=== PATIENT | male | born 1945 ===

== ENCOUNTER 2016-06-26 13:23 | Inpatient (IN) | payer OTHER ==
[~2016-06-26] VITALS: Ht 157.5 cm; Wt 70.5 kg
--- NOTE | 2016-06-26 14:01 | ED CARDIAC/CP/PALPITATIONS ---
History of Present Illness General Chief Complaint: General Adult Stated Complaint: SENT FROM DR. FERNANDEZ Vital Signs & Intake/Output Vital Signs & Intake/Output Vital Signs Date Time Temp Pulse Resp B/P Pulse O2 O2 Flow FiO2 Ox Delivery Rate 06/26 1648 97.9 39 20 169/72 96 Room Air 06/26 1530 98.1 38 18 170/74 100 06/26 1415 96 Room Air Room Air 06/26 1331 96.9 40 16 152/78 99 Room Air Allergies Coded Allergies: No Known Drug Allergies (UNKNOWN 08/12/15) Reconcile Medications Fluticasone/Vilanterol (Breo Ellipta 100-25 Mcg INH) 100 MCG-25 MCG/DOSE BLST.W.DEV 1 PUFF PO DAILY BREATHING PROBLEMS (Reported) Latanoprost 0.005 % DROPS 1 GTT OPH QPM EYE (Reported) Lisinopril 20 MG TABLET 1 TAB PO DAILY heart (Reported) Triage Note: 71 Y/O MALE BROUGHT BY FROM DR FERNANDEZ'S OFFICE FOR EVAL OF LOW HEART RATE. DR DOE SPOKE WITH DR FERNANDEZ ON THE PHONE WHO STATED PT WAS SENT TO ED FOR EVAL OF PULSE [address] (IN DR FERNANDEZ'S OFFICE). PT IN TRIAGE WITH RATE 40-42. DENIES HX OF SAME. STATES HE FEELS "LETHARGIC". DENIES DIZZINESS. DENIES PAIN. TAKEN TO ROOM 1 FOR EVAL AND EKG. Triage Nurses Notes Reviewed? yes Onset: Abrupt Duration: constant Timing: single episode today Quality/Severity: moderate Radiation: no radiation Activities at Onset: none HPI: Patient is a 71-year-old male with a past medical history of COPD, hypertension and glaucoma who presents to emergency room stating that he was being evaluated outpatient by pulmonology Dr. Fernandez today in which she was in his normal state of health where Dr. Fernandez noted bradycardia in which she was strongly advised to present to emergency room. Patient states that he has been complaining of mild generalized lethargy however denies any symptoms of fever, chills, arm pain jaw pain nausea vomiting dizziness lightheadedness sensation syncope hemoptysis leg swelling. Patient still is a current smoker. Denies any changes of respiration symptoms from his chronic intermittent nonproductive cough He does admit to a remote history of intermittent chest pain however nothing recent. (ELENI RODRIGUEZ,ZENOBIA) General Source: patient Exam Limitations: no limitations (ALPA DOE DO) Past History Travel History Traveled to [place] past 21 day No Medical History Any Pertinent Medical History? see below for history Neurological: NONE EENT: NONE Cardiovascular: NONE, hypertension Respiratory: COPD Gastrointestinal: NONE Hepatic: NONE Renal: NONE Musculoskeletal: NONE Psychiatric: NONE Endocrine: NONE Blood Disorders: NONE Cancer(s): NONE MANAGER [place]/Reproductive: NONE Pneumonia Vaccine: 04/16/07 Tetanus Vaccine: Surgical History Surgical History: non-contributory Psychosocial History Who do you live with Patient/Self What is your primary language Czech Tobacco Use: Current Daily Use Daily Tobacco Use Amount/Type: => 5 Cigarettes daily Family History Hx Contributory? No (ZENOBIA PLASCENCIA) Review of Systems Review of Systems Constitutional: Reports: no symptoms. EENTM: Reports: no symptoms. Respiratory: Reports: no symptoms. Cardiovascular: Reports: no symptoms. GI: Reports: no symptoms. Genitourinary: Reports: no symptoms. Musculoskeletal: Reports: no symptoms. Skin: Reports: no symptoms. Neurological/Psychological: Reports: no symptoms. Hematologic/Endocrine: Reports: no symptoms. Immunologic/Allergic: Reports: no symptoms. All Other Systems: Reviewed and Negative (ZENOBIA PLASCENCIA) Physical Exam Physical Exam General Appearance: no apparent distress, alert Cardiovascular: bradycardia Comments: Well-developed well-nourished person in no acute distress HEENT: Normal EENT exam, . Neck: Supple, no lymphadenopathy, normal range of motion without pain or tenderness Back: Nontender, no CVA tenderness. Respiratory: Chest nontender. No respiratory distress.breath sounds clear to auscultation bilaterally Abdomen: Soft, nontender nondistended, no appreciable organomegaly. Normal bowel sounds. No ascites Extremity: No edema, no calf tenderness to palpation, normal and equal pulses. Neuro: Alert oriented x3, motor sensory normal, Skin: No appreciable rash on exposed skin, skin is warm and dry. Psych: Mood and affect is normal, memory and judgment is normal. Core Measures ACS in differential dx? Yes Severe Sepsis Present: No Septic Shock Present: No (ZENOBIA PLASCENCIA) Progress Differential Diagnosis: AMI, aortic dissection, atrial fibrillation, cholecystitis, CHF/pulm edema, costochondritis, hyperkalemia, hypovolemia, hyperthyroid, hyperventilation, intracranial hemorrhage, musculoskeletal pain, myocarditis, pancreatitis, pericarditis, pneumonia, pneumothorax, PSVT, pulmonary embolism, PUD/GERD, PVCs/PACs, respiratory failure, rib fracture, sepsis, unstable angina, V-fib/V-Tach, WPW syndrome Plan of Care: Orders Procedure Date/time Status Nothing by Mouth 06/27 B Active CBC WITHOUT DIFFERENTIAL 06/27 0500 Active TROPONIN LEVEL 06/27 0130 Active EKG 06/27 0130 Active Heart Healthy Diet 06/26 D Complete TROPONIN LEVEL 06/26 1930 Active EKG 06/26 1930 Active Weight 06/26 1720 Active Turn and Reposition 06/26 1720 Active Teach/Educate 06/26 1720 Active Skin Integrity Protocol 06/26 1720 Active Skin/Pressure Ulcer Assess (Sk 06/26 1720 Active Precautions 06/26 1720 Active Pain Treatment and Response 06/26 1720 Active Nutritional Intake, Monitor 06/26 1720 Active Isolation 06/26 1720 Active Patient Care Conference 06/26 1720 Active Activity/Ambulation 06/26 1720 Active LOWER RESPIRATORY CULTURE 06/26 1651 Active Add-on Test (ER Only) 06/26 1622 Active Add-on Test (ER Only) 06/26 1621 Active EKG 06/26 1619 Active TRC EVALUATION (GEN) 06/26 1600 Active PT Evaluate & Treat 06/26 1600 Active Pathway - chart 06/26 1600 Active House Staff 06/26 1600 Active Code Status 06/26 1600 Active Add-on Test (ER Only) 06/26 1441 Active Admit to inpatient 06/26 1440 Active Patient Data 06/26 1431 Active THYROID STIMULATING HORMONE 06/26 1420 Complete PHOSPHORUS 06/26 1420 Complete MAGNESIUM 06/26 1420 Complete FREE T4 06/26 1420 Complete TROPONIN LEVEL 06/26 1348 Complete PROTHROMBIN TIME 06/26 1348 Complete LYME TITRE 06/26 1348 Active COMPREHENSIVE METABOLIC PANEL 06/26 1348 Complete CBC WITHOUT DIFFERENTIAL 06/26 1348 Complete EKG 06/26 1334 Active VTE Mechanical Prophylaxis 06/26 UNK Active Vital Signs 06/26 UNK Active Intake & Output 06/26 UNK Active ECHOCARDIOGRAM 06/26 UNK Active Current Medications Sig/Natasha Start time Last Medication Dose Stop Time Status Admin Budesonide/ 2 PUF BID 06/26 2200 AC Formoterol Fumarate (SYMBICORT) Atropine Sulfate 1 MG ONE PRN 06/26 1630 AC (Atropine) Acetaminophen 500 MG Q6P PRN 06/26 1600 AC (Tylenol) Ibuprofen 200 MG Q6P PRN 06/26 1600 AC (Advil) Oxycodone/ 1 TAB Q6P PRN 06/26 1600 AC Acetaminophen (Percocet) Heparin Sodium 5,000 UNIT Q8 06/26 1552 AC (Porcine) Laboratory Tests 06/26/16 1420: Anion Gap 13, Estimated GFR 60, BUN/Creatinine Ratio 18.3, Glucose 114 H, Calcium 10.1, Phosphorus 4.3, Magnesium 1.8, Total Bilirubin 1.0, AST 30, ALT 49 , Alkaline Phosphatase 114, Troponin I < 0.01, Total Protein 8.0, Albumin 4.3, Globulin 3.7, Albumin/Globulin Ratio 1.2, TSH 2.400, Free T4 1.34, PT 10.9, INR 1.04, CBC w Diff NO MAN DIFF REQ, RBC 4.90, MCV 84.4, MCH 28.2, RDW 14.6 H, MPV 7.9, Gran % 67.7, Lymphocytes % 23.2, Monocytes % 7.2, Eosinophils % 0.9, Basophils % 1.0, Absolute Granulocytes 9.7 H, Absolute Lymphocytes 3.3, Absolute Monocytes 1.0 H, Absolute Eosinophils 0.1, Absolute Basophils 0.1, PUBS MCHC 33.5 06/26/16 1348: Lyme Disease Antibody Pending Microbiology 06/26 1650 LOWER RESP: Respiratory Culture - ORD 06/26 1650 LOWER RESP: Gram Stain - ORD Patient's EKG showed signs of bradycardia however on vehicle monitor technician rhythm strip there is concerns of complete heart block. Patient currently is asymptomatic and denies any dizziness lightheadedness sensation or syncope. This patient with Dr. DOE who discussed the admission with Dr. Anderson who accepted patient to the ICU for concerns of complete heart block. Disposition and plan was discussed with patient who agrees at this time. Currently patient is in no apparent stress (ELENI RODRIGUEZ,ZENOBIA) Diagnostic Imaging: Viewed by Me: Radiology Read. Radiology Impression: SEE COMMENTS Initial ED EKG: SINUS BRADYCARDIA 38 BPM FIRST-DEGREE av BLOCK lvh,[id number] Comments: PATIENT: WILLIAM DRAPER PRESENT AGE: 71 PATIENT ACCOUNT NO: [id number] : 45 LOCATION: [facility] ORDERING PHYSICIAN: ZENOBIA RODRIGUEZ SERVICE DATE: 06/26/167788 EXAM TYPE: RAD - XRY-PORTABLE CHEST XRAY EXAMINATION: XR PORTABLE CHEST CLINICAL INFORMATION: ICU admission. Complete heart block. COMPARISON: Chest CT dated 04/18/2016. TECHNIQUE: Portable AP view of the chest was obtained. FINDINGS: The heart is normal in size. There is uncoiling of the thoracic aorta. There are bibasilar airspace opacities. There is no pneumothorax or large pleural effusion. Patient's known pulmonary nodules are better delineated on previous CT examination. IMPRESSION: Bibasilar opacities. Aspiration cannot be excluded.. (ZENOBIA PLASCENCIA) Departure Departure Disposition: STILL A PATIENT Condition: Critical Clinical Impression Primary Impression: Complete heart block Referrals: MEHRDAD GORDON MD (PCP/Family) Departure Forms: Customer Survey General Discharge Information Admission Note Documentation of Exam: Documentation of any treatments & extenuating circumstances including Concerns Regarding Discharge (functional status, medication knowledge or non-compliance, living conditions, etc.) that warrant an admission rather than observation: (ZENOBIA PLASCENCIA) Admission Note Spoke With: JUANY ANDERSON MD Documentation of Exam: Documentation of any treatments & extenuating circumstances including Concerns Regarding Discharge (functional status, medication knowledge or non-compliance, living conditions, etc.) that warrant an admission rather than observation: [The patient's rhythm strip shows complete heart block. He is admission for telemetry monitoring, cardiology consultation, follow the Lyme titer, likely pacemaker insertion.] PA/DERRICK BUILDER Co-Sign Statement Statement: ED Attending supervision documentation- [X] I saw and evaluated the patient. I have also reviewed all the pertinent lab results and diagnostic results. I agree with the findings and the plan of care as documented in the PA's/DERRICK BUILDER's documentation. [] I have reviewed the ED Record and agree with the PA's/DERRICK BUILDER's documentation. [] Additions or exceptions (if any) to the PAs/DERRICK BUILDER's note and plan are summarized below: [] 06/26/16 2:30 P I've seen and personally examined the patient and I agree with the PAs evaluation. He is a 71-year-old male with history of lung carcinoma. He was being evaluated by Dr. Fernandez and found to have a heart rate in the 30s. He was referred to the emergency department;P his initial 12-lead EKG showed sinus bradycardia however rhythm strip was done and it shows complete heart block. The patient is being admitted to the ICU under Dr. Anderson's service (ALPA DOE DO) Critical Care Note Critical Care Note Critical Care Time: 30-74 min (ELENI RODRIGUEZ,ZENOBIA)
[2016-06-26 14:32] LABS: ABSOLUTE BASOPHIL COUNT 0.1 /CUMM (0.0-0.2); ABSOLUTE EOSINOPHIL COUNT 0.1 /CUMM (0.0-0.7); ABSOLUTE GRANULOCYTE CT 9.7 /CUMM (1.4-6.5); ABSOLUTE LYMPH COUNT 3.3 /CUMM (1.2-3.4); EOSINOPHIL % 0.9 % (0-5); GRANULOCYTE % 67.7 % (42.2-75.2); HEMATOCRIT 41.3 % (42-52); MEAN CORPUSCULAR HGB 28.2 PG (27.0-31.0); MEAN CORPUSCULAR HGB CONC 33.5 G/DL (33.0-37.0); MEAN CORPUSCULAR VOLUME 84.4 FL (80.0-94.0); MEAN PLATELET VOLUME 7.9 FL (7.4-10.4); PLATELET COUNT 283 /CUMM (130-400); RBC DISTRIBUTION WIDTH 14.6 % (11.5-14.5); WHITE BLOOD CELL COUNT 14.3 /CUMM (4.8-10.8)
[2016-06-26 14:39] LABS: PT 10.9 SEC (9.4-12.5)
--- NOTE | 2016-06-26 14:41 | History & Physical ---
YOUSUF TREVIZO,KHARI 06/26/16 1440: General Information and HPI MD Statement: I have seen and personally examined WILLIAM DRAPER and documented this H&P. The patient is a 71 year old M who was sent to the ED from Dr. Panda's office today due to low heart rate. Source of Information: patient, family Exam Limitations: no limitations History of Present Illness: 71-year-old man with past medical history of hypertension, hyperlipidemia, COPD not on home oxygen, right lung nodule, peripheral vascular disease, osteoporosis , anxiety, was refered to the emergency department by Dr Frank Panda after finding his heart rate was 39-40/min in his office. In the Emergency department, his vitals was found to be HR- 40/min, BP- 152/ 78mmHg, temp- 96.9, rr- 16, Sp)2- 99% on room air. Patient says that he was completely asymptomatic, but on questioning he admitted to having increased lethargy since past 2 days. He denies any fever, chest pain, worsening cough, worsening shortness of breath, palpitation, dizziness, falls, swelling of legs, nausea, vomiting, recent travel, tick or any insect bites, any sick contacts. He also denied taking any [id number] medications/recreational medication. He did mention that he takes marijuana every day and the last one was yesterday. His primary care physician is Dr. Dawson Rios. He has seen Dr. 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 He mentioned that he does not wishes to be a regular patient of Dawson Jennings MD. Of note, while we were questioning the patient, his heart rate has been 39/min and he has remained asymptomatic. Allergies/Medications Allergies: Coded Allergies: No Known Drug Allergies (UNKNOWN 08/12/15) Home Med list Fluticasone/Vilanterol (Breo Ellipta 100-25 Mcg INH) 100 MCG-25 MCG/DOSE BLST.W.DEV 1 PUFF PO DAILY BREATHING PROBLEMS (Reported) Latanoprost 0.005 % DROPS 1 GTT OPH QPM EYE (Reported) Lisinopril 20 MG TABLET 1 TAB PO DAILY heart (Reported) Past History Travel History Traveled to [place] past 21 day No Medical History Neurological: NONE EENT: NONE Cardiovascular: hypertension, hyperlipidemia, PVD Respiratory: COPD, pulmonary nodule right side Gastrointestinal: NONE Hepatic: NONE Renal: NONE Musculoskeletal: osteoporosis Psychiatric: anxiety Endocrine: NONE Blood Disorders: NONE Cancer(s): NONE DISPERSION MIXER/Reproductive: NONE Pneumonia Vaccine: 04/16/07 Tetanus Vaccine: Past Family/Social History Psychosocial History Where do you live? Home Primary Language: Albanian Smoking Status: Heavy Tobacco Smoker (50+pack years history) ETOH Use: occasional use Illicit Drug Use: marijuana (daily, last was 06/25/16) Living Will? no Power of Arc Air Operator/HCP? yes Name of POA/HCP: Ara Anne [phone] Review of Systems Review of Systems Constitutional: Reports: no symptoms, malaise (2 DAYS). Denies: chills, diaphoresis, fever, weakness, unexplained weight loss. EENTM: Reports: no symptoms. Cardiovascular: Reports: no symptoms. Respiratory: Reports: cough (occassional). GI: Reports: no symptoms. Genitourinary: Reports: no symptoms. Musculoskeletal: Reports: no symptoms. Skin: Reports: no symptoms. Neurological/Psychological: Reports: no symptoms. Hematologic/Endocrine: Reports: no symptoms. All Other Systems: Reviewed and Negative Exam & Diagnostic Data Last 24 Hrs of Vital Signs/I&O Vital Signs Date Time Temp Pulse Resp B/P Pulse O2 O2 Flow FiO2 Ox Delivery Rate 06/26 1415 96 Room Air Room Air 06/26 1331 96.9 40 16 152/78 99 Room Air Intake & Output 06/26 1600 06/26 0800 06/26 0000 Intake Total 0 Output Total Balance 0 Intake, Oral 0 Patient 72.575 kg Weight Physical Exam General Appearance Alert, Oriented X3, Cooperative, No Acute Distress Skin No Rashes, No Breakdown, No Significant Lesion HEENT Atraumatic, PERRLA, EOMI, Mucous Membr. moist/pink Neck Supple, No JVD Lymphatic Cervical nl Cardiovascular Normal S1, Normal S2, bradycardia at 38 Lungs Clear to Auscultation, Normal Air Movement Abdomen Normal Bowel Sounds, Soft, No Tenderness Neurological Normal Speech, Strength at 5/5 X4 Ext, Normal Tone, Sensation Intact, Cranial Nerves 3-12 NL, Reflexes 2+, higher mental function normal, grossly intact Extremities No Clubbing, No Cyanosis, No Edema, Normal Pulses Vascular Normal Pulses, Pulses Symmetrical Last 24 Hrs of Labs/Darek: Laboratory Tests 06/26/16 1420: Anion Gap 13, Estimated GFR 60, BUN/Creatinine Ratio 18.3, Glucose 114 H, Calcium 10.1, Total Bilirubin 1.0, AST 30, ALT 49, Alkaline Phosphatase 114, Troponin I < 0.01, Total Protein 8.0, Albumin 4.3, Globulin 3.7, Albumin/ Globulin Ratio 1.2, TSH Pending, Free T4 Pending, PT 10.9, INR 1.04, CBC w Diff NO MAN DIFF REQ, RBC 4.90, MCV 84.4, MCH 28.2, RDW 14.6 H, MPV 7.9, Gran % 67.7 , Lymphocytes % 23.2, Monocytes % 7.2, Eosinophils % 0.9, Basophils % 1.0, Absolute Granulocytes 9.7 H, Absolute Lymphocytes 3.3, Absolute Monocytes 1.0 H, Absolute Eosinophils 0.1, Absolute Basophils 0.1, PUBS MCHC 33.5 06/26/16 1348: Lyme Disease Antibody Pending Diagnostic Data EKG Results AV dissociation with ventricular rate at 35/min, narrow complex, P wave at 100/ min, No ST-T wave changes, QTC- 474, QRS duration- 126, PA- 383, RBBB CXR Results IMPRESSION: Bibasilar opacities. Aspiration cannot be excluded.. DICTATED BY: DORIS CAMPOS MD DATE/TIME DICTATED:06/26/161517 SOCIAL ECONOMIST:NASIMA DATE/TIME TRANSCRIBED:06/26/161517 Other Results ECHO done on 08/09/2015 shows LVEF>65% Assessment/Plan Assessment: 71-year-old man with past medical history of hypertension, hyperlipidemia, COPD not on home oxygen, right lung nodule, peripheral vascular disease, osteoporosis , anxiety, was refered to the emergency department by Dr Frank Panda after finding his heart rate was 39-40/min in his office. In the emergency room, he was found to have vitals as pulse 40, blood pressure 152/78, temperature 96.9, respirations 16, oxygen saturation 99% on room air. Lab was significant for mild leukocytosis and chest x-ray could not rule out aspiration due to bibasilar opacities. Patient is currently being managed in the ICU for the following issues: #Third-degree heart block Only cardiac history that the patient has is hypertension, hyperlipidemia, peripheral vascular disease, and no other similar episodes where the patient was ever told about low pulse rate or low heart rate, so we're assuming that this is his first episode. -Patient is currently asymptomatic, except for fatigue since 2 days which is nonspecific -Director [employer] Dr. Lopez has reviewed the patient and EKG, telemetry recordings, and plan is to go for pacemaker implantation tonight. -In the meantime, the patient has pacemaker pads stuck on over his chest, and injection atropine ready at the bedside. Injection atropine 0.5 mg IV can be given stat if he is symptomatic with bradycardia, with a maximum dose of 3 mg. -Dr Mack has been contacted for the procedure and the patient put on NPO. -Vancomycin one time dose pre-procedure ordered. -Will follow one more EKG and troponin after the procedure and then decide on the rest. #His home medication is on hold due to the procedure. -Will need to continue his medication for COPD, hypertension, hyperlipidemia, anxiety after the procedure. -Of note, medication has been confirmed with the patient, as well as his pharmacy, the medical reconciliation is up-to-date. #Of note, he has pulmonary nodule on the left side, and according to his salesperson automobiles Dr. Panda, he knows about it and does not want to proceed with its work-up at this time. #Diet: Nothing by mouth for now, pending procedure. Need to advance diet as patient tolerates after procedure. #DVT prophylaxis by subcutaneous heparin 3 times a day #CODE STATUS: Full code As Ranked By This Provider Problem List: 1. Complete heart block 2. COPD (chronic obstructive pulmonary disease) 3. Pulmonary nodule, right 4. PVD (peripheral vascular disease) 5. HTN (hypertension) 6. HLD (hyperlipidemia) 7. Osteoporosis 8. Anxiety Core Measures/Miscellaneous Acute Coronary Syndrome ACS Diagnosis: No Cerebrovascular Accident CVA/TIA Diagnosis: No Congestive Heart Failure CHF Diagnosis: No Venous Thromboembolism VTE Risk Factors: Age > 40, Obesity, Smoking [facility] prophylaxis d/t: No contraindications No VTE Pharm Prophylaxis d/t: No contraindications VTE Diagnosis: No VTE Type: NONE VTE Confirmed by (Test): NONE Severe Sepsis Severe Sepsis Present: No Septic Shock Septic Shock Present: No Miscellaneous Documentation Attending Case Discussed With: JUANY LOPEZ MD Primary Care Physician: DAWSON RIOS MD Patient sees these Specialists Cardiology Level of Patient Care: Critical Care (CRI) JUANY LOPEZ MD 06/26/16 1656: Attending MD Review Statement Attending Statement Attending MD Statement: examined this patient, discuss w/resident/PA/PROCESS SAFETY SPECIALIST, agreed w/resident/PA/PROCESS SAFETY SPECIALIST, discussed with family, reviewed EMR data (avail), discussed with nursing, reviewed images, amended to note Attending Assessment/Plan: Agree with housestaff note. The patient is a 71-year-old male with history of hypertension, hyperlipidemia, and right lung nodule who was admitted with third- degree heart block. He presented to Dr. Aquino's office for follow-up of his lung nodule. He complained of fatigue and feeling poorly. He has not eaten anything all day because of feeling poorly. He was found to be bradycardic with heart rate in the 30s. He was referred to the emergency department where he was found to be in third-degree AV block. He denies palpitations, chest pain, shortness of breath, syncope, or presyncope. Review of systems: No fever. No chills. No rash. No tremor. No melena. All other systems were reviewed, and were noted to be negative. Vital Signs Date Time Temp Pulse Resp B/P Pulse O2 O2 Flow FiO2 Ox Delivery Rate 06/26 1648 97.9 39 20 169/72 96 Room Air 06/26 1530 98.1 38 18 170/74 100 06/26 1415 96 Room Air Room Air 06/26 1331 96.9 40 16 152/78 99 Room Air Gen: The patient is in no acute distress HEENT: Normal nose, ears, and oropharynx. Pupils equal bilaterally. Conjunctiva normal. Neck: Supple with no JVD, no masses, and no thyromegaly Lungs: Clear to auscultation with normal respiratory effort Heart: Bradycardic, S1, S2, no murmurs. No peripheral edema, 2+ pulses in the lower extremities bilaterally Abdomen: Soft, nontender, no masses. No hepatomegaly. No splenomegaly Extremities: No clubbing or cyanosis. Normal muscle strength in the upper and lower extremities Skin: Normal skin turgor with no skin ulcers or lesions noted. Neuro: Cranial nerves intact. Sensation intact Psych: Alert and oriented 3 with appropriate affect Laboratory Tests 06/26 06/26 1420 1348 Chemistry Sodium (137 - 145 mmol/L) 137 Potassium (3.5 - 5.1 mmol/L) 4.5 Chloride (98 - 107 mmol/L) 103 Carbon Dioxide (22 - 30 mmol/L) 21 L Anion Gap (5 - 16) 13 BUN (9 - 20 mg/dL) 22 H Creatinine (0.7 - 1.2 mg/dL) 1.2 Estimated GFR (>60 ml/min) 60 BUN/Creatinine Ratio (7 - 25 %) 18.3 Glucose (65 - 99 mg/dL) 114 H Calcium (8.4 - 10.2 mg/dL) 10.1 Phosphorus (2.5 - 4.5 mg/dL) 4.3 Magnesium (1.6 - 2.3 mg/dL) 1.8 Total Bilirubin (0.2 - 1.3 mg/dL) 1.0 AST (17 - 59 U/L) 30 ALT (21 - 72 U/L) 49 Alkaline Phosphatase (< 127 U/L) 114 Troponin I (<0.11 ng/ml) < 0.01 Total Protein (6.3 - 8.2 g/dL) 8.0 Albumin (3.5 - 5.0 g/dL) 4.3 Globulin (1.9 - 4.2 gm/dL) 3.7 Albumin/Globulin Ratio (1.1 - 2.2 %) 1.2 TSH (0.270 - 4.200 uIU/mL) 2.400 Free T4 (0.78 - 2.44 ng/dL) 1.34 Coagulation PT (9.4 - 12.5 SEC) 10.9 INR (0.90 - 1.17) 1.04 Hematology CBC w Diff NO MAN DIFF REQ WBC (4.8 - 10.8 /CUMM) 14.3 H RBC (4.70 - 6.10 /CUMM) 4.90 Hgb (14.0 - 18.0 G/DL) 13.8 L Hct (42 - 52 %) 41.3 L MCV (80.0 - 94.0 FL) 84.4 MCH (27.0 - 31.0 PG) 28.2 RDW (11.5 - 14.5 %) 14.6 H Plt Count (130 - 400 /CUMM) 283 MPV (7.4 - 10.4 FL) 7.9 Gran % (42.2 - 75.2 %) 67.7 Lymphocytes % (20.5 - 51.1 %) 23.2 Monocytes % (1.7 - 9.3 %) 7.2 Eosinophils % (0 - 5 %) 0.9 Basophils % (0.0 - 2.0 %) 1.0 Absolute Granulocytes (1.4 - 6.5 /CUMM) 9.7 H Absolute Lymphocytes (1.2 - 3.4 /CUMM) 3.3 Absolute Monocytes (0.10 - 0.60 /CUMM) 1.0 H Absolute Eosinophils (0.0 - 0.7 /CUMM) 0.1 Absolute Basophils (0.0 - 0.2 /CUMM) 0.1 PUBS MCHC (33.0 - 37.0 G/DL) 33.5 Serology Lyme Disease Antibody Pending Echocardiogram 08/09/15: Mild concentric left ventricular hypertrophy. Normal left ventricular ejection fraction visually estimated at >65 No obvious regional wall motion abnormalities. Abnormal relaxation filling pattern of the left ventricle for age (stage 1 diastolic dysfunction). The left atrium is normal in size. Mitral valve thickened. Moderate to marked mitral annular calcification. No mitral regurgitation. Focal thickening of the aortic valve cusps. No aortic stenosis. Pulmonary artery systolic pressure is normal. Persantine Mibi stress test 08/13/15: Normal Persantine stress and resting myocardial perfusion study with normal left ventricular wall motion and ejection fraction. Screening CT of the chest: - For the irregular 1.3 cm left upper lobe nodule, recommend PET-CT imaging workup and/or tissue sampling. - Recommend cessation of cigarette smoking. - Management of other potentially clinically significant findings as per accepted clinical guidelines, or as deemed clinically appropriate. PET CT of the chest: 1. Intense abnormal FDG activity in the left upper lobe pulmonary nodule is strongly suspicious for malignancy. 2. Multiple additional subcentimeter pulmonary nodules present bilaterally are too small to be characterized on the FDG PET images. 3. No additional abnormalities suspicious for metastatic or other malignant lesions are noted. 4. Diffuse vascular calcifications including coronary. In addition, proximal to an aortobiiliac vascular graft, there has been a slight increase in the size of the abdominal aorta compared to 02/02/2009. EKG tracing is independently reviewed, reveals sinus rhythm with third-degree AV block Assessment: 1. Hypertension 2. Hyperlipidemia 3. Peripheral acid disease 4. COPD 5. Lung mass, likely malignant. The patient has declined biopsy and surgery. Plan: * Admit to ICU for third-degree heart block * Transcutaneous pacing pads at the bedside. * Nothing by mouth * Consult Dr. Mack for pacemaker placement. * Echocardiogram. 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 Patient reports feeling weak and tired for the past couple days. Patient denies any recent listing to the emergency department or recent hospitalization. Patient denies any fever, chest pain, palpitation, difficulty breathing, wheezing, abdominal pain, diarrhea, vomiting, headache or change in vision or hearing. Latest echocardiogram was done July 2015 with ejection fraction more than 60%, stage I diastolic dysfunction. Physical examination, lab and imaging as above. Problem list: -Symptomatic bradycardia with third-degree A-V heart block. -Lung mass/nodules most likely malignant, patient declined biopsy and surgery. Plan: -Admit patient to ICU -Vitals every shift, I and O's -Atropine at bedside with transcutaneous pacing pads -Keep the patient nothing by mouth for emergent pacemaker placement that would be placed by Dr. Frederick mcdonald. -Check serial troponin and EKG -Check magnesium, phosphate and TSH with free T4 level -Check Lyme titer -Echocardiogram status post placement -TRC nebs as needed continue home medication of inhaler. -We'll hold off any beta zenon or calcium channel zenon medication -We'll start the diet after procedure with heart healthy diet -Pain pathway -DVT prophylaxis: subcutaneous heparin -Full code
[2016-06-26] MEDS ORDERED: LISINOPRIL20 M1 PO (14:54)
[2016-06-26] MEDS ORDERED: LATANOPROST2.5 ML OPH (14:54)
[2016-06-26] MEDS ORDERED: BREO ELLIPTA 11 EACH PO (14:54)
--- NOTE | 2016-06-26 15:26 | RADIOLOGY REPORT ---
EXAMINATION: XR PORTABLE CHEST CLINICAL INFORMATION: ICU admission. Complete heart block. COMPARISON: Chest CT dated 04/18/2016. TECHNIQUE: Portable AP view of the chest was obtained. FINDINGS: The heart is normal in size. There is uncoiling of the thoracic aorta. There are bibasilar airspace opacities. There is no pneumothorax or large pleural effusion. Patient's known pulmonary nodules are better delineated on previous CT examination. IMPRESSION: Bibasilar opacities. Aspiration cannot be excluded..
[2016-06-26 17:48] VITALS: BP 150/80
--- NOTE | 2016-06-26 22:16 | Cons- Cardiology ---
General Information and HPI Consulting Request Date of Consult: 06/26/16 Requested By: JUANY ANDERSON MD Reason for Consult: I was asked to see this patient in regards to complete heart block. Source of Information: patient, family, old records Exam Limitations: no limitations, poor historian History of Present Illness: This patient is a 71-year-old man who has a history of hypertension hyperlipidemia heavy tobacco use and daily marijuana use. He has known peripheral vascular disease. He has had an aortobifemoral graft placed by either Dr. Sorensen or Shoaib. Unfortunately his continued to smoke heavily. He also may have borderline diabetes. Other issues include nephrolithiasis, osteoporosis, and severe COPD. He is followed by Dr. Panda. He does have a known lung nodule on CT scan which lights up on PET scan and is likely malignant. On a CT scan he did have coronary artery calcifications suggestive of coronary artery disease. He did have a stress MIBI study on 08/13/2015 showing no ischemia and a normal ejection fraction. He also had an echocardiogram on 08/09/2015 showing a normal ejection fraction of 65% but he did have aortic valve thickening and heavy mitral annular calcification. Over the past couple days he may have had increasing weakness although apparently is able to go up and down stairs. He came to see Dr. Panda for routine appointment today and his pulse was noted to be in the 30s to 40s. He was sent to the ER where an EKG showed complete heart block with a ventricular escape. I was asked by Dr. Anderson to see the patient and recommended an emergent pacemaker. Allergies/Medications Allergies: Coded Allergies: No Known Drug Allergies (UNKNOWN 08/12/15) Home Med List: Fluticasone/Vilanterol (Breo Ellipta 100-25 Mcg INH) 100 MCG-25 MCG/DOSE BLST.W.DEV 1 PUFF PO DAILY BREATHING PROBLEMS (Reported) Latanoprost 0.005 % DROPS 1 GTT OPH QPM EYE (Reported) Lisinopril 20 MG TABLET 1 TAB PO DAILY heart (Reported) Current Medications: Current Medications Sig/Natasha Start time Last Medication Dose Route Stop Time Status Admin Acetaminophen 500 MG Q6P PRN 06/26 1600 AC PO Albuterol Sulfate 3 ML Q4P PRN 06/26 2215 UNV INH Atropine Sulfate 1 MG ONE PRN 06/26 1630 AC IV Budesonide/ 2 PUF BID 06/26 2200 AC Formoterol Fumarate INH Heparin Sodium 5,000 UNIT Q8 06/26 1552 AC (Porcine) SC Ibuprofen 200 MG Q6P PRN 06/26 1600 AC PO Oxycodone/ 1 TAB Q6P PRN 06/26 1600 AC Acetaminophen PO Sodium Chloride 1,000 ML BOLUS ONE 06/26 1400 DC 06/26 IV 06/26 1559 1412 Vancomycin HCl 1,000 MG ONCE ONE 06/27 1000 UNir Dextrose/Water 250 ML IV 06/27 1059 Vancomycin HCl 1,000 MG ONCE ONE 06/26 1830 DC Dextrose/Water 250 ML IV 06/26 1929 Review of Systems Review of Systems All Other Systems: Reviewed and Negative Past History Travel History Traveled to [place] past 21 day No Medical History Neurological: NONE EENT: NONE Cardiovascular: hypertension, hyperlipidemia, PVD Respiratory: COPD, pulmonary nodule right side Gastrointestinal: NONE Hepatic: NONE Renal: NONE Musculoskeletal: osteoporosis Psychiatric: anxiety Endocrine: NONE Blood Disorders: NONE Cancer(s): NONE 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 Home Primary Language: Northern Irish Smoking Status: Heavy Tobacco Smoker (50+pack years history) ETOH Use: occasional use Illicit Drug Use: marijuana (daily, last was 06/25/16) Living Will? no Power of Field Marketer/HCP? yes Name of POA/HCP: Ara Anne, Exam & Diagnostic Data Vital Signs and I&O Vital Signs Date Time Temp Pulse Resp B/P Pulse O2 O2 Flow FiO2 Ox Delivery Rate 06/26 2155 Nasal 2.0L Cannula 06/26 1748 97.6 37 28 150/80 96 Room Air 06/26 1648 97.9 39 20 169/72 96 Room Air 06/26 1530 98.1 38 18 170/74 100 06/26 1415 96 Room Air Room Air 06/26 1331 96.9 40 16 152/78 99 Room Air Intake & Output 06/26 1600 06/26 0800 06/26 0000 06/25 1600 06/25 0806/25 0000 Intake Total 0 Output Total Balance 0 Intake, Oral 0 Patient 160 lb Weight Physical Exam: General: [] For vital signs, see above. Head: Normocephalic/atraumatic Eyes: No xanthelasma or scleral icterus Mouth: Moist mucous membranes without pallor or cyanosis Neck: No jugular venous distention, carotid bruits, thyromegaly Thorax/lungs: No chest deformity, lungs diffuse rhonchi with prolonged expiratory phase Cardiac: Normal S1, S2 without S3, S4 or murmurs. HR in the high 30's Abdomen: No tenderness or masses Extremities: No cyanosis, clubbing, or edema Neruo: Grossly nonfocal Skin: No major rashes Psychiatric: Somewhat anxious, agitated, and somewhat uncooperative Labs/Darek Results: Laboratory Tests 06/26 06/26 06/26 1830 1420 1348 Chemistry Sodium (137 - 145 mmol/L) 137 Potassium (3.5 - 5.1 mmol/L) 4.5 Chloride (98 - 107 mmol/L) 103 Carbon Dioxide (22 - 30 mmol/L) 21 L Anion Gap (5 - 16) 13 BUN (9 - 20 mg/dL) 22 H Creatinine (0.7 - 1.2 mg/dL) 1.2 Estimated GFR (>60 ml/min) 60 BUN/Creatinine Ratio (7 - 25 %) 18.3 Glucose (65 - 99 mg/dL) 114 H Hemoglobin A1c (4.2 - 5.8 %) Pending Calcium (8.4 - 10.2 mg/dL) 10.1 Phosphorus (2.5 - 4.5 mg/dL) 4.3 Magnesium (1.6 - 2.3 mg/dL) 1.8 Total Bilirubin (0.2 - 1.3 mg/dL) 1.0 AST (17 - 59 U/L) 30 ALT (21 - 72 U/L) 49 Alkaline Phosphatase (< 127 U/L) 114 Troponin I (<0.11 ng/ml) < 0.01 < 0.01 Total Protein (6.3 - 8.2 g/dL) 8.0 Albumin (3.5 - 5.0 g/dL) 4.3 Globulin (1.9 - 4.2 gm/dL) 3.7 Albumin/Globulin Ratio (1.1 - 2.2 %) 1.2 TSH (0.270 - 4.200 uIU/mL) 2.400 Free T4 (0.78 - 2.44 ng/dL) 1.34 Coagulation PT (9.4 - 12.5 SEC) 10.9 INR (0.90 - 1.17) 1.04 Hematology CBC w Diff NO MAN DIFF REQ WBC (4.8 - 10.8 /CUMM) 14.3 H RBC (4.70 - 6.10 /CUMM) 4.90 Hgb (14.0 - 18.0 G/DL) 13.8 L Hct (42 - 52 %) 41.3 L MCV (80.0 - 94.0 FL) 84.4 MCH (27.0 - 31.0 PG) 28.2 RDW (11.5 - 14.5 %) 14.6 H Plt Count (130 - 400 /CUMM) 283 MPV (7.4 - 10.4 FL) 7.9 Gran % (42.2 - 75.2 %) 67.7 Lymphocytes % (20.5 - 51.1 %) 23.2 Monocytes % (1.7 - 9.3 %) 7.2 Eosinophils % (0 - 5 %) 0.9 Basophils % (0.0 - 2.0 %) 1.0 Absolute Granulocytes (1.4 - 6.5 /CUMM) 9.7 H Absolute Lymphocytes (1.2 - 3.4 /CUMM) 3.3 Absolute Monocytes (0.10 - 0.60 /CUMM) 1.0 H Absolute Eosinophils (0.0 - 0.7 /CUMM) 0.1 Absolute Basophils (0.0 - 0.2 /CUMM) 0.1 PUBS MCHC (33.0 - 37.0 G/DL) 33.5 Serology Lyme Disease Antibody Pending Diagnostic Data EKG Results Complete heart block with ventricular escape Assessment/Plan Assessment/Plan My assessment is that this patient has complete heart block. The likely etiology is distal conduction system disease especially given his heavy mitral annular calcification seen on echocardiography. I agree that dual-chamber pacemaker implantation is recommended and will be admitting him emergently to the operating room for this procedure. He does have coronary artery calcification and he should be on a statin for this as well. We will leave his pulmonary issues to Dr. Panda. The patient likely has a lung carcinoma. He'll also need continued treatment for his hypertension. He was counseled to stop smoking but did not seem interested in this proposition. Copies To: ADRIANA TREVIZO,MO Beard; NGOZI PANDA MD; HEIDI TREVIZO,MEHRDAD Beard; JUSTIN TREVIZO,JUANY Consult Acknowledgment - Thank you for your consult request.
--- NOTE | 2016-06-26 22:34 | Operative Report ---
Operative/Inv Procedure Report Surgery Date: 06/26/16 Name of Procedure: Dual-chamber pacemaker implantation Pre-Operative Diagnosis: Complete heart block Post-Operative Diagnosis: Complete heart block Estimated Blood Loss: scant Surgeon/Centrifuge Operator: Mo Mack MD Anesthesia: local monitored anesthesi, moderate sedation Implants: Dual-chamber Medtronic pacemaker see below Complications: None apparent Operative Indication: Complete heart block Operative/Procedure Note Note: The patient was brought to the OR prepped and draped in usual fashion. It should be noted this is a very difficult case in that the patient was moving throughout the entire case rather vigorously. The patient also has COPD it was very difficult to sedate him without some obstuction and yet he was also very agitated. This made the case higher risk. After he was prepped and draped the skin was anesthetized and incision made and dissection carried out down the deltoid and pectoral muscles. The deltopectoral groove was identified and dissected in a very small cephalic vein was isolated. A Vicryl tie was placed around the vein. The vein was cannulated with a Jelco but no blood return was achievable. Thus it appeared that this vein was too small to access the central circulation. Thus the patient was placed in Trendelenburg and the left axillary vein was cannulated using a micropuncture kit using fluoroscopic guidance. A micropuncture wire was exchanged for a conventional guidewire and a 7 Slovak introducer was advanced. Through this the ventricular lead was placed. The ventricular lead is Medtronic active fixation bipolar lead model 5076-52 serial number [id number]. This was actively fixed to the right ventricular septum. Once excellent values were obtained with injury current we remove this SafeSheath and sewed the lead to the underlying muscle using 2 separate 2-0 silk sutures. We had placed a second guidewire into the original sheath and thus a wire was retained after we readvanced the first sheath. Thus over the second retained wire we advanced another 7 Slovak SafeSheath and through this we placed atrial lead. The atrial lead is Medtronic model 4574-45 serial number [id number]. This is a preformed J tined atrial lead. Once we obtained excellent values with this lead we then removed the SafeSheath and sewed this lead to the underlying muscle using 2 separate 2-0 silk sutures. We then placed a hemostatic Vicryl suture around both leads to stop any backbleeding. After further local was delivered we created a pocket overlying the pectoral muscle using Bovie and then blunt dissection. Final testing of the leads revealed a P- wave amplitude of 4.1 mV. The R wave amplitude is roughly 10 mV. Measured through the device the P-wave amplitude was 4.1 mV. The atrial lead impedance was 608 ohms. The ventricular impedance was 646 ohms. Both atrial and ventricular thresholds were 0.5 V. The pacemaker was then brought to the field and attached to the leads. The pacemaker is a Medtronic Advisa MRI compatible unit, Model A2DR01, serial number [id number]. This was attached to the leads in the appropriate fashion. The pocket was then irrigated using antibiotic solution after the device was placed into the pocket. The pocket was then closed using running 2-0 Vicryl in 3 layers and then 4-0 Monocryl suture in a subcuticular fashion. Steri-Strips were placed and a dressing was applied. The pacemaker was set into the DDD mode lower rate of 60 and an upper tracking rate of 140 bpm. The paced AV delay was set at 200 and the sensed AV delay 180. There were no apparent complications and the patient was sent back to the ICU in good condition. CC: ADRIANA TREVIZO,MO Beard; JIM TREVIZO,NGOZI; HEIDI TREVIZO,MEHRDAD Beard; JUANY ANDERSON MD
--- NOTE | 2016-06-26 22:46 | RADIOLOGY REPORT ---
EXAMINATION: XRY-CHEST XRAY, ONE VIEW ONLY, XRY-PORTABLE CHEST XRAY CLINICAL INFORMATION: Pacemaker placement. COMPARISON: Chest x-ray done earlier this afternoon. TECHNIQUE: Fluoroscopic guidance was provided to Dr. Demetrio Mack for pacemaker placement. The total time fluoroscopy was 3.3 minutes. A total of 7 spot films are submitted for review. This was followed with a portable semierect chest x-ray. FINDINGS: The spot films document the steps taken in the placement of a dual-lead pacemaker. One wire terminates in the right atrium and the other the right ventricle. Spot film #4 and #5 show wire fragments presumably external to the patient. Following the surgery, there is no indication of pneumothorax. Subsegmental left lower lobe atelectasis is present. There is no evidence of congestive heart failure or pleural effusion. IMPRESSION: Status post pacemaker placement with 2 leads as described. No pneumothorax.
[2016-06-27] VITALS: BP 110/70
[2016-06-27 05:19] LABS: ABSOLUTE BASOPHIL COUNT 0.1 /CUMM (0.0-0.2); ABSOLUTE EOSINOPHIL COUNT 0 /CUMM (0.0-0.7); ABSOLUTE GRANULOCYTE CT 11.1 /CUMM (1.4-6.5); ABSOLUTE LYMPH COUNT 3.2 /CUMM (1.2-3.4); ABSOLUTE MONOCYTE COUNT 1.3 /CUMM (0.10-0.60); BASOPHIL % 0.4 % (0.0-2.0); EOSINOPHIL % 0.2 % (0-5); GRANULOCYTE % 70.6 % (42.2-75.2); MEAN CORPUSCULAR HGB 28.2 PG (27.0-31.0); MEAN CORPUSCULAR HGB CONC 33.1 G/DL (33.0-37.0); MEAN CORPUSCULAR VOLUME 85.2 FL (80.0-94.0); MEAN PLATELET VOLUME 8.2 FL (7.4-10.4); PLATELET COUNT 234 /CUMM (130-400); RBC DISTRIBUTION WIDTH 14.4 % (11.5-14.5); RED BLOOD CELL CT 4.25 /CUMM (4.70-6.10); WHITE BLOOD CELL COUNT 15.8 /CUMM (4.8-10.8)
[2016-06-27 05:30] LABS: HEMATOCRIT 36.2 % (42-52)
--- NOTE | 2016-06-27 06:21 | Cons- CR[facility] ---
General Information and HPI Consulting Request Date of Consult: 06/27/16 Requested By: Dr. Lopez Reason for Consult: COPD lung mass Source of Information: patient Exam Limitations: no limitations History of Present Illness: 71-year-old man known to me from office. Sent 06/26 to ED after noted to have a heart rate in office HR 39-40. Fatigued. Only on Lisinopril (hasn't taken in past few days). Continues to smoke marijuana. Understands that his lung lesion maybe malignant and he prefers no intervention. From the pulmonary perspective he appears stable on BREO, however he is losing his appetite. In ER noted to be in complete heart block and is now s/p pacemaker placement. Feels much better. Some soreness/tenderness at insertion site. Otherwise no dyspnea, no cp, no n/v/d/c. Previous history: S/p PET scan - Intense abnormal FDG activity in the left upper lobe pulmonary nodule is strongly suspicious for malignancy. - Multiple additional subcentimeter pulmonary nodules present bilaterally are too small to be characterized on the FDG PET images. - No additional abnormalities suspicious for metastatic or other malignant lesions are noted. - Diffuse vascular calcifications including coronary. In addition, proximal to an aortobiiliac vascular graft, there has been a slight increase in the size of the abdominal aorta compared to 02/02/2009. MICHAEL NEW irregular 1.3 cm left upper lobe nodule. 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 Significant response to bronchodilators. FEV1 1.25L. Stress test nuclear showed normal Persantine stress testing with resting myocardial perfusion study with normal LV wall motion and ejection fraction. Echo in July 2015 showing stage I diastolic dysfunction. Smokes about 1 ppd at this time and marijuana at least 3 joints daily. Cough and dyspnea at baseline, no wheezing. No fevers, no chills. Allergies/Medications Allergies: Coded Allergies: No Known Drug Allergies (UNKNOWN 08/12/15) Home Med List: Fluticasone/Vilanterol (Breo Ellipta 100-25 Mcg INH) 100 MCG-25 MCG/DOSE BLST.W.DEV 1 PUFF PO DAILY BREATHING PROBLEMS (Reported) Latanoprost 0.005 % DROPS 1 GTT OPH QPM EYE (Reported) Lisinopril 20 MG TABLET 1 TAB PO DAILY heart (Reported) Current Medications: Current Medications Sig/Natasha Start time Last Medication Dose Route Stop Time Status Admin Acetaminophen 1,000 MG .STK-MED ONE 06/26 1850 DC IV 06/26 1851 Acetaminophen 500 MG Q6P PRN 06/26 1600 AC PO Albuterol Sulfate 3 ML Q4P PRN 06/26 2215 AC INH Atorvastatin Calcium 80 MG 1700 06/27 1700 AC PO Atropine Sulfate 1 MG ONE PRN 06/26 1630 AC IV Benzocaine/Menthol 1 ZULEYKA Q2P PRN 06/26 2230 AC 06/26 PO 2321 Budesonide/ 2 PUF BID 06/26 2200 DC 06/26 Formoterol Fumarate INH 2225 Dexamethasone 4 MG .STK-MED ONE 06/26 1851 DC IM 06/26 1852 Fentanyl Citrate 100 MCG .STK-MED ONE 06/26 1851 DC IM 06/26 1852 Heparin Sodium 5,000 UNIT Q8 06/26 1552 AC 06/27 (Porcine) SC 0609 Ibuprofen 200 MG Q6P PRN 06/26 1600 AC PO Ketamine HCl 50 MG .STK-MED ONE 06/26 2008 DC IM 06/26 2010 Lisinopril 20 MG DAILY 06/27 1000 AC PO Midazolam HCl 2 MG .STK-MED ONE 06/26 1851 DC IM 06/26 1852 Ondansetron HCl 8 MG .STK-MED ONE 06/26 1851 DC IM 06/26 1852 Oxycodone/ 1 TAB Q6P PRN 06/26 1600 AC Acetaminophen PO Ramelteon 8 MG AT BEDTIME 06/26 2345 AC 06/26 PO 2339 Sodium Chloride 1,000 ML BOLUS ONE 06/26 1400 DC 06/26 IV 06/26 1559 1412 Vancomycin HCl 1,000 MG ONCE ONE 06/27 1000 AC Dextrose/Water 250 ML IV 06/27 1059 Vancomycin HCl 1,000 MG ONCE ONE 06/26 1830 DC 06/26 Dextrose/Water 250 ML IV 06/26 1929 1830 Review of Systems Comments 18 pt ros performed, pertinent positives and negatives in hpi, otherwise negative Past History Travel History Traveled to [place] past 21 day No Medical History Neurological: NONE EENT: NONE Cardiovascular: hypertension, hyperlipidemia, PVD Respiratory: COPD, pulmonary nodule right side Gastrointestinal: NONE Hepatic: NONE Renal: NONE Musculoskeletal: osteoporosis Psychiatric: anxiety Endocrine: NONE Blood Disorders: NONE Cancer(s): NONE 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 Home Services at Home: None Primary Language: Dominican Smoking Status: Heavy Tobacco Smoker (50+pack years history) ETOH Use: occasional use Illicit Drug Use: marijuana (daily, last was 06/25/16) Living Will? 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 Name of POA/HCP: Ara Omid, Exam & Diagnostic Data Last 24 Hrs of Vital Signs/I&O Vital Signs Date Time Temp Pulse Resp B/P Pulse O2 O2 Flow FiO2 Ox Delivery Rate 06/27 0400 96 Nasal 2.0L Cannula 06/27 0000 97 Nasal 2.0L Cannula 06/27 0000 96.5 94 28 110/70 97 Nasal 2.0L Cannula 06/26 2155 Nasal 2.0L Cannula 06/26 1748 97.6 37 28 150/80 96 Room Air 06/26 1648 97.9 39 20 169/72 96 Room Air 06/26 1530 98.1 38 18 170/74 100 06/26 1415 96 Room Air Room Air 06/26 1331 96.9 40 16 152/78 99 Room Air Intake & Output 06/27 0800 06/27 0000 06/26 1600 Intake Total 550 0 Output Total 200 Balance 350 0 Intake, IV 300 Intake, Oral 250 0 Output, Urine 200 Patient 160 lb 160 lb Weight Physical Exam Other Physical Findings: gen awake and alert heent ncat cvs s1, s2, murmur abd soft, bs+ ext without edema pacemaker intact Last 48 Hrs of Labs/Darek: Laboratory Tests 06/27/16 0349: CBC w Diff NO MAN DIFF REQ, RBC 4.25 L, MCV 85.2, MCH 28.2, RDW 14.4, MPV 8.2, Gran % 70.6, Lymphocytes % 20.2 L, Monocytes % 8.6, Eosinophils % 0.2, Basophils % 0.4, Absolute Granulocytes 11.1 H, Absolute Lymphocytes 3.2, Absolute Monocytes 1.3 H, Absolute Eosinophils 0, Absolute Basophils 0.1, PUBS MCHC 33.1 06/26/16 1830: Troponin I < 0.01 06/26/16 1420: Anion Gap 13, Estimated GFR 60, BUN/Creatinine Ratio 18.3, Glucose 114 H, Hemoglobin A1c Pending, Calcium 10.1, Phosphorus 4.3, Magnesium 1.8, Total Bilirubin 1.0, AST 30, ALT 49, Alkaline Phosphatase 114, Troponin I < 0.01, Total Protein 8.0, Albumin 4.3, Globulin 3.7, Albumin/Globulin Ratio 1.2, TSH 2.400, Free T4 1.34, PT 10.9, INR 1.04, CBC w Diff NO MAN DIFF REQ, RBC 4.90, MCV 84.4, MCH 28.2, RDW 14.6 H, MPV 7.9, Gran % 67.7, Lymphocytes % 23.2, Monocytes % 7.2, Eosinophils % 0.9, Basophils % 1.0, Absolute Granulocytes 9.7 H, Absolute Lymphocytes 3.3, Absolute Monocytes 1.0 H, Absolute Eosinophils 0.1 , Absolute Basophils 0.1, PUBS MCHC 33.5 06/26/16 1348: Lyme Disease Antibody Pending Assessment/Plan Impression/Plan: 71-year-old man known to me from office. Sent 06/26 to ED after noted to have a heart rate in office HR 39-40. Fatigued. Only on Lisinopril (hasn't taken in past few days). Continues to smoke marijuana. Understands that his lung lesion maybe malignant and he prefers no intervention. From the pulmonary perspective he appears stable on BREO, however he is losing his appetite. In ER noted to be in complete heart block and is now s/p pacemaker placement. Feels much better. Some soreness/tenderness at insertion site. Otherwise no dyspnea, no cp, no n/v/d/c. Previous history: S/p PET scan - Intense abnormal FDG activity in the left upper lobe pulmonary nodule is strongly suspicious for malignancy. - Multiple additional subcentimeter pulmonary nodules present bilaterally are too small to be characterized on the FDG PET images. - No additional abnormalities suspicious for metastatic or other malignant lesions are noted. - Diffuse vascular calcifications including coronary. In addition, proximal to an aortobiiliac vascular graft, there has been a slight increase in the size of the abdominal aorta compared to 02/02/2009. MICHAEL NEW irregular 1.3 cm left upper lobe nodule. 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 Significant response to bronchodilators. FEV1 1.25L. Stress test nuclear showed normal Persantine stress testing with resting myocardial perfusion study with normal LV wall motion and ejection fraction. Echo in July 2015 showing stage I diastolic dysfunction. Smokes about 1 ppd at this time and marijuana at least 3 joints daily. Cough and dyspnea at baseline, no wheezing. No fevers, no chills. Impression 71 year old man - complete heart block, s/p pacemaker - COPD - tobacco/marijuana dependence - lung mass Plan - pt declines any intervention/diagnosis for lung mass which is likely malignant , all risks discussed on multiple occasions - cardiac care per cardiology - d/s symbicort - patient is on BREO with rinsing of the mouth, can bring from home, or resume when discharged - TRC/Nebs as needed - pain control - smoking cessation, counseled - DVT prophylaxis at all times TTS 40 min Consult Acknowledgment - Thank you for your consult request.
[2016-06-27 08:00] VITALS: BP 110/60
--- NOTE | 2016-06-27 08:17 | PN- Resident CRCU ---
Subjective HPI/CRCU Issues: Pt status post pacemaker implantation for 3rd degree heart block, has done well overnight. Was comfortably eating breakfast on the recliner this am when seen. Reports that he has not had much appetite and smoking weed helps him with his appeptite. He reports sore throat most likely from the intubation. He did not sleep on the bed, and has not been sleeping on the bed due to chronic orthopnea, although lungs sounded clear, and no LE edema noted. As discussed with Dr. Lopez, pt can be transferred to telemetry. 24 Hour Events: No events Objective Vital Signs & I&O Last 8 Hrs of Vitals and I&O: Vital Signs Date Time Temp Pulse Resp B/P Pulse O2 O2 Flow FiO2 Ox Delivery Rate 06/27 0837 92 Room Air 06/27 0400 96 Nasal 2.0L Cannula 06/27 0000 97 Nasal 2.0L Cannula 06/27 0000 96.5 94 28 110/70 97 Nasal 2.0L Cannula 06/26 2155 Nasal 2.0L Cannula 06/26 1748 97.6 37 28 150/80 96 Room Air 06/26 1648 97.9 39 20 169/72 96 Room Air 06/26 1530 98.1 38 18 170/74 100 06/26 1415 96 Room Air Room Air 06/26 1331 96.9 40 16 152/78 99 Room Air Exam General Appearance: well developed/nourished, no apparent distress, alert, awake , comfortable Head: normal appearance Ears, Nose, Throat: hearing grossly normal Neck: normal inspection Respiratory: normal breath sounds Cardiovascular: regular rate/rhythm Gastrointestinal: normal bowel sounds, soft, non-tender Extremities: no edema Current Medications: Current Medications Sig/Natasha Start time Last Medication Dose Route Stop Time Status Admin Acetaminophen 1,000 MG .STK-MED ONE 06/26 1850 DC IV 06/26 1851 Acetaminophen 500 MG Q6P PRN 06/26 1600 AC PO Albuterol Sulfate 3 ML Q4P PRN 06/26 2215 AC INH Atorvastatin Calcium 80 MG 1700 06/27 1700 AC PO Atropine Sulfate 1 MG ONE PRN 06/26 1630 AC IV Benzocaine/Menthol 1 ZULEYKA Q2P PRN 06/26 2230 AC 06/27 PO 0749 Budesonide/ 2 PUF BID 06/26 2200 DC 06/26 Formoterol Fumarate INH 2225 Dexamethasone 4 MG .STK-MED ONE 06/26 185 DC IM 06/26 185 Fentanyl Citrate 100 MCG .STK-MED ONE 06/26 185 DC IM 06/26 185 Heparin Sodium 5,000 UNIT Q8 06/26 1552 AC 06/27 (Porcine) SC 0609 Ibuprofen 200 MG Q6P PRN 06/26 1600 AC PO Ketamine HCl 50 MG .STK-MED ONE 06/26 2008 DC IM 06/26 2009 Lisinopril 20 MG DAILY 06/27 1000 AC PO Midazolam HCl 2 MG .STK-MED ONE 06/26 185 DC IM 06/26 185 Ondansetron HCl 8 MG .STK-MED ONE 06/26 185 DC IM 06/26 185 Oxycodone/ 1 TAB Q6P PRN 06/26 1600 AC 06/27 Acetaminophen PO 0749 Ramelteon 8 MG AT BEDTIME 06/26 2345 AC 06/26 PO 2339 Sodium Chloride 1,000 ML BOLUS ONE 06/26 1400 DC 06/26 IV 06/26 1559 1412 Vancomycin HCl 1,000 MG ONCE ONE 06/27 1000 AC Dextrose/Water 250 ML IV 06/27 1059 Vancomycin HCl 1,000 MG ONCE ONE 06/26 1830 DC 06/26 Dextrose/Water 250 ML IV 06/26 1929 1830 Impression/Plan Impression/Problem List Impression: This is a 71-year-old man with PMH of hypertension, hyperlipidemia, COPD not on home oxygen, right lung nodule, peripheral vascular disease, osteoporosis, anxiety, was refered to the ED by his visual display associate, Dr. Panda, due to bradycardia with a heart rate between 35-45/MIN. Patient reports feeling weak and tired for the couple days prior. He was admitted under Dr. Lopez. He underwent pacemaker implantation with Dr. Mack on 06/26/16 and tolerated it well. Was observed in ICU overnight, and now stable for transfer to telemetry. Latest echocardiogram was done July 2015 with ejection fraction more than 60%, stage I diastolic dysfunction. Problem list: -Symptomatic bradycardia with third-degree AV heart block sp pacemaker implantation -Lung mass/nodules most likely malignant, patient declined biopsy and surgery -Leukocytosis (WBC 14.3 on admission, now 15.8, without bands) Plan: -Transfer to telemetry -Monitor CBC -Vitals every shift, I and O's -F/U Lyme titer -F/U Echocardiogram status post placement -TR nebs as needed, continue home medication of inhaler - Continue lisinopril for blood pressure control - Continue atorvastatin DVT prophylaxis: subcutaneous heparin and alps Full code Problem List: 1. Complete heart block 2. Pacemaker 3. Pulmonary nodule, right Pain Ratin Tomorrow's Labs & Rationales: CBC for leukocytosis Plan DVT/Prophylaxis: mechanical, pharmacological
--- NOTE | 2016-06-27 09:24 | PN- Cardiology ---
See Addendum Subjective Subjective: Permanent pacemaker placed urgently yesterday evening for third-degree heart block. The patient is feeling better today. No chest pain. No shortness of breath. No lightheadedness or dizziness. No nausea or vomiting. Pulmonary consulted for lung mass which appears to be likely malignant. The patient is refusing further workup for possible lung cancer. He is in a paced rhythm on telemetry. Fatigue has improved. Objective Vital Signs and I&Os Vital Signs Date Time Temp Pulse Resp B/P Pulse O2 O2 Flow FiO2 Ox Delivery Rate 06/27 0837 92 Room Air 06/27 0400 96 Nasal 2.0L Cannula 06/27 0000 97 Nasal 2.0L Cannula 06/27 0000 96.5 94 28 110/70 97 Nasal 2.0L Cannula 06/26 2155 Nasal 2.0L Cannula 06/26 1748 97.6 37 28 150/80 96 Room Air 06/26 1648 97.9 39 20 169/72 96 Room Air 06/26 1530 98.1 38 18 170/74 100 06/26 1415 96 Room Air Room Air 06/26 1331 96.9 40 16 152/78 99 Room Air Intake & Output 06/27 1600 06/27 0800 06/27 0000 06/26 1600 06/26 0800 06/26 0000 Intake Total 120 550 0 Output Total 700 200 Balance -580 350 0 Intake, IV 300 Intake, Oral 120 250 0 Output, Urine 700 200 Patient 160 lb 160 lb Weight Physical Exam: Gen: The patient is in no acute distress HEENT: Normal nose, ears, and oropharynx. Pupils equal bilaterally. Conjunctiva normal. Neck: Supple with no JVD, no masses, and no thyromegaly Lungs: Clear to auscultation with normal respiratory effort Heart: RRR, S1, S2, no murmurs. No peripheral edema, 2+ pulses in the lower extremities bilaterally Abdomen: Soft, nontender, no masses. No hepatomegaly. No splenomegaly Extremities: No clubbing or cyanosis. Normal muscle strength in the upper and lower extremities Skin: Normal skin turgor with no skin ulcers or lesions noted. Neuro: Cranial nerves intact. Sensation intact Psych: Alert and oriented 3 with appropriate affect Current Medications: Current Medications Sig/Natasha Start time Last Medication Dose Route Stop Time Status Admin Acetaminophen 1,000 MG .STK-MED ONE 06/26 1850 DC IV 06/26 1851 Acetaminophen 500 MG Q6P PRN 06/26 1600 AC PO Albuterol Sulfate 3 ML Q4P PRN 06/26 2215 AC INH Atorvastatin Calcium 80 MG 1700 06/27 1700 AC PO Atropine Sulfate 1 MG ONE PRN 06/26 1630 AC IV Benzocaine/Menthol 1 ZULEYKA Q2P PRN 06/26 2230 AC 06/27 PO 0749 Budesonide/ 2 PUF BID 06/26 2200 DC 06/26 Formoterol Fumarate INH 2225 Dexamethasone 4 MG .STK-MED ONE 06/26 1851 DC IM 06/26 1852 Fentanyl Citrate 100 MCG .STK-MED ONE 06/26 1851 DC IM 06/26 1852 Heparin Sodium 5,000 UNIT Q8 06/26 1552 AC 06/27 (Porcine) SC 0609 Ibuprofen 200 MG Q6P PRN 06/26 1600 AC PO Ketamine HCl 50 MG .STK-MED ONE 06/26 2008 DC IM 06/26 2010 Lisinopril 20 MG DAILY 06/27 1000 AC PO Midazolam HCl 2 MG .STK-MED ONE 06/26 1851 DC IM 06/26 1852 Ondansetron HCl 8 MG .STK-MED ONE 06/26 1851 DC IM 06/26 1852 Oxycodone/ 1 TAB Q6P PRN 06/26 1600 AC 06/27 Acetaminophen PO 0749 Ramelteon 8 MG AT BEDTIME 06/26 2345 AC 06/26 PO 2339 Sodium Chloride 1,000 ML BOLUS ONE 06/26 1400 DC 06/26 IV 06/26 1559 1412 Vancomycin HCl 1,000 MG ONCE ONE 06/27 1000 AC Dextrose/Water 250 ML IV 06/27 1059 Vancomycin HCl 1,000 MG ONCE ONE 06/26 1830 DC 06/26 Dextrose/Water 250 ML IV 06/26 1929 1830 Results Last 48 Hrs of Labs/Mics: Laboratory Tests 06/27/16 0349: CBC w Diff NO MAN DIFF REQ, RBC 4.25 L, MCV 85.2, MCH 28.2, RDW 14.4, MPV 8.2, Gran % 70.6, Lymphocytes % 20.2 L, Monocytes % 8.6, Eosinophils % 0.2, Basophils % 0.4, Absolute Granulocytes 11.1 H, Absolute Lymphocytes 3.2, Absolute Monocytes 1.3 H, Absolute Eosinophils 0, Absolute Basophils 0.1, [facility] MCHC 33.1 06/26/16 1830: Troponin I < 0.01 06/26/16 1420: Anion Gap 13, Estimated GFR 60, BUN/Creatinine Ratio 18.3, Glucose 114 H, Hemoglobin A1c Pending, Calcium 10.1, Phosphorus 4.3, Magnesium 1.8, Total Bilirubin 1.0, AST 30, ALT 49, Alkaline Phosphatase 114, Troponin I < 0.01, Total Protein 8.0, Albumin 4.3, Globulin 3.7, Albumin/Globulin Ratio 1.2, TSH 2.400, Free T4 1.34, PT 10.9, INR 1.04, CBC w Diff NO MAN DIFF REQ, RBC 4.90, MCV 84.4, MCH 28.2, RDW 14.6 H, MPV 7.9, Gran % 67.7, Lymphocytes % 23.2, Monocytes % 7.2, Eosinophils % 0.9, Basophils % 1.0, Absolute Granulocytes 9.7 H, Absolute Lymphocytes 3.3, Absolute Monocytes 1.0 H, Absolute Eosinophils 0.1 , Absolute Basophils 0.1, [facility] MCHC 33.5 06/26/16 1348: Lyme Disease Antibody Pending Recent Imaging Studies: Chest x-ray images from yesterday evening status post pacemaker placement are independently reviewed, and reveal pacemaker leads which appear to be in place. EKG tracing from 1833 on 06/26 is reviewed, and reveals sinus rhythm with third- degree AV block, left axis deviation, left ventricular hypertrophy waste management specialist tracings are reviewed, and reveal ventricular paced rhythm Assessment/Plan Assessment/Plan Assessment: 1. Hypertension 2. Hyperlipidemia 3. Lung mass, likely malignant. 4. 3rd degree AV block, status post permanent pacemaker placement Plan: * Transfer to telemetry * Continue lisinopril for blood pressure control * Continue atorvastatin * Echocardiogram * Appreciate pulmonary consult. I discussed with the patient that his lung mass has the appearance of a malignant lesion, and may represent lung cancer. I advised further evaluation, however he continues to decline. I explained the risk of metastatic spread of cancer. The patient states that he understands this risk, but he declines further workup or treatment for the lung mass. Continue telemetry? Yes
--- NOTE | 2016-06-27 13:45 | Patient Discharge Instructions ---
Discharge Instructions General Discharge Information You were seen/treated for: Complete heart block Pacemaker implanted Special Instructions: Please follow up with PCP, Dr. Panda(lung doctor) and Dr. Lopez(commercial baker helper). Diet Continue normal diet: Yes Recommended Diet: Heart Healthy Activity Full Activity/No Limits: Yes Acute Coronary Syndrome Inclusion Criteria At DC or during hospital stay patient has or had the following: ACS DIAGNOSIS No Discharge Core Measures Meds if any: Prescribed or Continued at Discharge Meds if any: NOT Prescribed or Continued at Discharge Congestive Heart Failure Inclusion Criteria At DC or during hospital stay patient has or had the following: CHF DIAGNOSIS No Discharge Core Measures Meds if any: Prescribed or Continued at Discharge Meds if any: NOT Prescribed or Continued at Discharge Cerebrovascular accident Inclusion Criteria At DC or during hospital stay patient has or had the following: CVA/TIA Diagnosis No Discharge Core Measures Meds if any: Prescribed or Continued at Discharge Meds if any: NOT Prescribed or Continued at Discharge Venous thromboembolism Inclusion Criteria VTE Diagnosis No VTE Type NONE VTE Confirmed by (Test) NONE Discharge Core Measures - Per Current guidelines, there needs to be overlap - treatment for the first 5 days of Warfarin therapy. - If discharged on Warfarin prior to 5 days of - overlap therapy, the patient will need to be - assessed for post discharge needs including - *Post discharge parental anticoagulation - *Warfarin and/or parental anticoagulation education - *Follow up date to check INR post discharge At least 5 days overlap therapy as Inpatient No Meds if any: Prescribed or Continued at Discharge Note: Overlap Therapy is Warfarin and Anticoagulant Meds if any: NOT Prescribed or Continued at Discharge
--- NOTE | 2016-06-27 13:48 | Discharge Summary ---
Visit Information Visit Dates Admission Date: 06/26/16 Discharge Date: 06/28/16 Hospital Course Course Attending Physician: JUANY ANDERSON MD Primary Care Physician: MEHRDAD GORDON MD Hospital Course: Patient came from Dr. Fernandez's office where his HR was noted to be in low 30s. Subsequently sent to ED for further evaluation, found to be in complete heart block. Pacemaker implanted on 06/26/[address] Wright, heart rate subsequently in the 80s-90s. Statin was started this admission. Lisinopril continued. Echocardiogram and lyme titer pending. Pt still refuses further workup of lung nodule, despite having been told by multiple doctors including Dr. Fernandez and Dr. Anderson that it could be cancer. He was counseled to stop smoking but did not seem interested in this proposition. Allergies: Coded Allergies: No Known Drug Allergies (UNKNOWN 08/12/15) Disposition Summary Disposition Principal Diagnosis: Complete heart block requiring pacemaker implantation Additional Diagnosis: Hypertension Discharge Disposition: home or self care Discharge Instructions General Discharge Information Code Status: Full Code Patient's Diet: Heart healthy Patient's Activity: As tolerated Follow-Up Instructions/Appts: Follow up with PCP, Dr. Fernandez, Dr. Anderson and Dr. Wright. Medications at Discharge Discharge Medications: Continue taking these medications: Lisinopril (Lisinopril) 20 MG TABLET 1 Tablet ORAL DAILY Qty = 90 Comments: Last Taken:06/27/16 Time:9:35A.M Latanoprost (Latanoprost) 0.005 % DROPS 1 Drop In the eye Every night Qty = 3 Comments: Last Taken:NOT GIVEN THIS ADMISSION Time: Fluticasone/Vilanterol (Breo Ellipta 100-25 Mcg INH) 100 MCG-25 MCG/DOSE BLST.W.DEV 1 PUFF ORAL DAILY Qty = 60 Comments: Last Taken: NOT GIVEN THIS ADMISSION Time: Start taking the following new medications: Atorvastatin Calcium (Lipitor) 80 MG TABLET 1 Tablet ORAL DAILY Qty = 30 No Refills Comments: Last Taken:NOT GIVEN THIS ADMISSION Time: Copies To: MO WRIGHT MD; NGOZI FERNANDEZ MD; MEHRDAD GORDON MD; JUANY ANDERSON MD Attending MD Review Statement Documenting Attending: JUANY ANDERSON MD
[2016-06-27 16:06] VITALS: BP 98/60
--- NOTE | 2016-06-27 17:13 | ECHOCARDIOGRAM REPORT ---
WILLIAM DRAPER Age: 71 : 1945 Gender: M Exam Date: 06/27/2016 10:55 Exam Location: [facility] Ht (in): 62 Wt (lb): 160 BSA: 1.81 BP: 123 / 62 Ordering Physician: CORIN MARK MD Referring Physician: CORIN MARK MD Technologist: Kali Wei [facility] Room Number: 110 Indications: Arrhythmia Rhythm: Other Technical Quality: Good FINDINGS Left Ventricle Normal size left ventricle. Mild concentric left ventricular hypertrophy. Normal left ventricular ejection fraction visually estimated at >55%. No obvious regional wall motion abnormalities. Right Ventricle Normal right ventricular size and function. Right Atrium Normal right atrial size. Left Atrium Normal left atrial size. Mitral Valve Moderate mitral annular calcification. Mitral valve thickened. Trace mitral regurgitation. Aortic Valve Diffuse thickening (sclerosis) of the aortic valve cusps without reduced excursion. No aortic stenosis. No aortic regurgitation. Tricuspid Valve Tricuspid valve not well visualized, grossly normal. Trace tricuspid regurgitation. Pulmonic Valve Pulmonic valve not well visualized, grossly normal. Trace pulmonic regurgitation. Pericardium No pericardial effusion. Great Vessels Normal size aortic root. CONCLUSIONS Mild concentric left ventricular hypertrophy. Normal left ventricular ejection fraction visually estimated at > 55%. Trace mitral regurgitation. Trace tricuspid regurgitation. Trace pulmonic regurgitation. Vern Lopez M.D. (Electronically Signed) Final Date: 27 June 2016 17:12 MEASUREMENTS (Male / Female) Normal Values 2D ECHO LV Diastolic Diameter PLAX 4.2 cm 4.2 - 5.9 / 3.9 - 5.3 cm LV Systolic Diameter PLAX 3.0 cm 2.1 - 4.0 cm LV Fractional Shortening PLAX 28.6 % 25 - 46 % LV Ejection Fraction 2D Teich 55.5 % IVS Diastolic Thickness 1.2 cm LVPW Diastolic Thickness 1.2 cm LV Relative Wall Thickness 0.6 RV Internal Dim ED PLAX 2.9 cm 1.9 - 3.8 cm LVOT Diameter 2.0 cm Aortic Root Diameter 3.1 cm LA Systolic Diameter LX 2.9 cm 3.0 - 4.0 / 2.7 - 3.8 cm Ascending Aorta Diameter 2.9 cm DOPPLER AV Peak Velocity 194.0 cm/s AV Peak Gradient 15.1 mmHg AV Mean Velocity 113.0 cm/s AV Mean Gradient 7.0 mmHg AV Velocity Time Integral 37.8 cm LVOT Peak Velocity 159.0 cm/s LVOT Peak Gradient 10.1 mmHg LVOT Mean Velocity 96.1 cm/s LVOT Mean Gradient 5.0 mmHg LVOT Velocity Time Integral 31.6 cm LVOT Stroke Volume 99.3 cm AV Area Cont Eq vti 2.6 cm AV Area Cont Eq pk 2.6 cm MV Peak Velocity 176.0 cm/s MV Peak Gradient 12.4 mmHg MV Mean Velocity 89.1 cm/s MV Mean Gradient 4.0 mmHg Mitral E Point Velocity 93.2 cm/s Mitral A Point Velocity 167.0 cm/s Mitral E to A Ratio 0.6 MV PHT Velocity 178.0 cm/s MV Deceleration [place] 1074.0 cm/s MV Pressure Half Time 49.7 ms MV Area PHT 4.4 cm MV Deceleration Time 271.0 ms PV Peak Velocity 110.0 cm/s PV Peak Gradient 4.8 mmHg PV Mean Velocity 67.8 cm/s PV Mean Gradient 2.0 mmHg PV Velocity Time Integral 19.0 cm LV E' Lateral Velocity 4.0 cm/s Mitral E to LV E' Lateral Ratio 23.3 LV E' Septal Velocity 5.2 cm/s Mitral E to LV E' Septal Ratio 18.0
[2016-06-28 00:45] VITALS: BP 102/64
--- NOTE | 2016-06-28 07:11 | PN- Housestaff ---
Subjective Follow-up For: - Third deg HB Subjective: Pt was comfortable. No complaints. He was anxious to be discharged. vitals were stable overnight. Review of Systems Constitutional: Reports: see HPI. Objective Last 24 Hrs of Vital Signs/I&O Vital Signs Date Time Temp Pulse Resp B/P Pulse O2 O2 Flow FiO2 Ox Delivery Rate 06/28 0645 93 Room Air 06/28 0045 96.7 88 20 102/64 90 Room Air 06/27 1606 97.6 87 20 98/60 92 06/27 0935 101 123/62 06/27 0837 92 Room Air 06/27 0800 94 Room Air 06/27 0800 97.6 90 27 110/60 94 Room Air Intake & Output 06/28 0800 06/28 0000 06/27 1600 Intake Total 720 1040 Output Total 300 Balance 720 740 Intake, IV 280 Intake, Oral 720 760 Number 1 Bowel Movements Output, Urine 300 Patient 156 lb Weight Physical Exam General Appearance: No Acute Distress Skin: No Rashes, pacemaker in place, no tenderness, or rash HEENT: Atraumatic, PERRLA, EOMI Neck: Supple, No JVD, No thryomegaly Lymphatic: Cervical nl Cardiovascular: Normal S1, Normal S2 Lungs: Clear to Auscultation, Normal Air Movement Abdomen: Soft, No Tenderness Neurological: Normal Speech, Strength at 5/5 X4 Ext, Normal Tone, Cranial Nerves 3-12 NL Extremities: No Cyanosis, No Edema Vascular: Pulses Symmetrical Current Medications: Current Medications Sig/Natasha Start time Last Medication Dose Route Stop Time Status Admin Acetaminophen 500 MG Q6P PRN 06/26 1600 AC PO Albuterol Sulfate 2 PUF Q4 06/28 1000 UNVr INH Albuterol Sulfate 3 ML Q4P PRN 06/26 2215 AC 06/28 INH 0644 Atorvastatin Calcium 80 MG 1700 06/27 1700 AC PO Atropine Sulfate 1 MG ONE PRN 06/26 1630 AC IV Benzocaine/Menthol 1 ZULEYKA Q2P PRN 06/26 2230 AC 06/27 PO 0749 Heparin Sodium 5,000 UNIT Q8 06/26 1552 AC 06/27 (Porcine) SC 2204 Ibuprofen 200 MG Q6P PRN 06/26 1600 AC PO Lisinopril 20 MG DAILY 06/27 1000 AC 06/27 PO 0935 Oxycodone/ 1 TAB Q6P PRN 06/26 1600 AC 06/27 Acetaminophen PO 220 Ramelteon 8 MG AT BEDTIME 06/26 2345 AC 06/27 PO 2204 Vancomycin HCl 1,000 MG ONCE ONE 06/27 1000 DC 06/27 Dextrose/Water 250 ML IV 06/27 1059 0927 Assessment/Plan Assessment: Patient came from Dr. Panda's office where his HR was noted to be in low 30s. Subsequently sent to ED for further evaluation, found to be in complete heart block. Pacemaker implanted on 06/26/[address] Mack, heart rate subsequently in the 80s-90s. Below is the problem list and plan: #1 bradycardia-pacemaker in place. No tenderness or erythema around the place of insertion. Heart rate adequately controlled. Follow up with Dr. Valencia/ Dr. Waggoner within 1-2 weeks of discharge. #2 lung mass-as per the patient he does not want any further evaluation such as biopsy. Encouraged him to follow up with Dr. Panda. #3 DVT prophylaxis-pharmacological. Problem List: 1. Pacemaker 2. Pulmonary nodule, right Pain Ratin Pain Location: Site of insertion of pacemaker. Pain Goal: Pain 4 or less Pain Plan: Tylenol when necessary Tomorrow's Labs & Rationales: No labs necessary. Patient to be discharged.
[2016-06-28 08:00] VITALS: BP 100/60
[2016-06-28 08:25] LABS: ABSOLUTE BASOPHIL COUNT 0 /CUMM (0.0-0.2); ABSOLUTE EOSINOPHIL COUNT 0.2 /CUMM (0.0-0.7); ABSOLUTE GRANULOCYTE CT 9.4 /CUMM (1.4-6.5); ABSOLUTE LYMPH COUNT 2.6 /CUMM (1.2-3.4); ABSOLUTE MONOCYTE COUNT 1.3 /CUMM (0.10-0.60); BASOPHIL % 0.3 % (0.0-2.0); EOSINOPHIL % 1.3 % (0-5); GRANULOCYTE % 69.4 % (42.2-75.2); HEMATOCRIT 38.7 % (42-52); MEAN CORPUSCULAR HGB 28.1 PG (27.0-31.0); MEAN CORPUSCULAR HGB CONC 32.9 G/DL (33.0-37.0); MEAN CORPUSCULAR VOLUME 85.5 FL (80.0-94.0); MEAN PLATELET VOLUME 8.1 FL (7.4-10.4); PLATELET COUNT 228 /CUMM (130-400); RBC DISTRIBUTION WIDTH 14.5 % (11.5-14.5); RED BLOOD CELL CT 4.53 /CUMM (4.70-6.10); WHITE BLOOD CELL COUNT 13.5 /CUMM (4.8-10.8)
[2016-06-28 09:12] VITALS: BP 100/60
[2016-06-28] MEDS ORDERED: LIPITOR80 M1 PO (10:06)
--- NOTE | 2016-06-28 14:32 | PN- Cardiology ---
Subjective Subjective: The patient is doing well. No symptoms. Heart rate controlled. Pacemaker function normal. Pacemaker surgical site normal. Objective Vital Signs and I&Os Vital Signs Date Time Temp Pulse Resp B/P Pulse O2 O2 Flow FiO2 Ox Delivery Rate 06/28 0912 98.6 97 20 100/60 06/28 0800 98.6 97 20 100/60 96 Room Air 06/28 0645 93 Room Air 06/28 0045 96.7 88 20 102/64 90 Room Air 06/27 1606 97.6 87 20 98/60 92 Intake & Output 06/28 1600 06/28 0800 06/28 0000 06/27 1600 06/27 0800 06/27 0000 Intake Total 720 1040 120 550 Output Total 300 700 200 Balance 720 740 -580 350 Intake, IV 280 300 Intake, Oral 720 760 120 250 Number 1 Bowel Movements Output, Urine 300 700 200 Patient 156 lb 160 lb Weight Current Medications: Current Medications Sig/Natasha Start time Last Medication Dose Route Stop Time Status Admin Acetaminophen 500 MG Q6P PRN 06/26 1600 DCD PO Albuterol Sulfate 2 PUF Q4P PRN 06/28 1000 DCD INH Albuterol Sulfate 3 ML Q4P PRN 06/26 2215 DCD 06/28 INH 0644 Atorvastatin Calcium 80 MG 1700 06/27 1700 DCD PO Atropine Sulfate 1 MG ONE PRN 06/26 1630 DCD IV Benzocaine/Menthol 1 ZULEYKA Q2P PRN 06/26 2230 DCD 06/27 PO 0749 Heparin Sodium 5,000 UNIT Q8 06/26 1552 DCD 06/27 (Porcine) SC 2204 Ibuprofen 200 MG Q6P PRN 06/26 1600 DCD PO Lisinopril 20 MG DAILY 06/27 1000 DCD 06/27 PO 0935 Oxycodone/ 1 TAB Q6P PRN 06/26 1600 DCD 06/27 Acetaminophen PO 2204 Ramelteon 8 MG AT BEDTIME 06/26 2345 DCD 06/27 PO 2204 Results Last 48 Hrs of Labs/Mics: Laboratory Tests 06/28/16 0655: CBC w Diff NO MAN DIFF REQ, RBC 4.53 L, MCV 85.5, MCH 28.1, RDW 14.5, MPV 8.1, Gran % 69.4, Lymphocytes % 19.1 L, Monocytes % 9.9 H, Eosinophils % 1.3, Basophils % 0.3, Absolute Granulocytes 9.4 H, Absolute Lymphocytes 2.6, Absolute Monocytes 1.3 H, Absolute Eosinophils 0.2, Absolute Basophils 0, PUBS MCHC 32.9 L 06/27/16 0349: CBC w Diff NO MAN DIFF REQ, RBC 4.25 L, MCV 85.2, MCH 28.2, RDW 14.4, MPV 8.2, Gran % 70.6, Lymphocytes % 20.2 L, Monocytes % 8.6, Eosinophils % 0.2, Basophils % 0.4, Absolute Granulocytes 11.1 H, Absolute Lymphocytes 3.2, Absolute Monocytes 1.3 H, Absolute Eosinophils 0, Absolute Basophils 0.1, PUBS MCHC 33.1 06/26/16 1830: Troponin I < 0.01 Microbiology 06/26 181 UPPER RESP: Surveillance Culture - COMP Assessment/Plan Assessment/Plan Assessment: 1. Hypertension 2. Hyperlipidemia 3. Lung mass, likely malignant. 4. 3rd degree AV block, status post permanent pacemaker placement Recommendations: -From a cardiac standpoint, the patient appears stable for discharge -Continue current medication regimen -Outpatient follow-up with Dr. Lopez and Dr. Fuentes -I also had a long discussion with the patient about the lung nodule and positive PET scan. I made it clear to the patient that he should follow up closely with Dr. Panda for this. I also discussed the situation with Dr. Panda. Continue telemetry? No
== END 2016-06-28 12:00 | DRG 244 ==
LOC: ENRESERVTM → ENRESERVDT → ERH 13:23 → ERHI 14:40 → 1NO 14:40 → ENPENDDIS 14:40 → CRI 14:40 → 1NO 06-27 13:54
PROVIDERS: Emergency Medicine; Internal Medicine Hematology & Oncology; Radiology Diagnostic Radiology; ADMIT Internal Medicine Cardiovascular Disease
PROC: 0JH606Z Insertion of Pacemaker, Dual Chamber into Chest Subcutaneous Tissue and Fascia, Open Approach (ICD-10-PCS; principal; 2016-06-26)
PROC: 02H63JZ Insertion of Pacemaker Lead into Right Atrium, Percutaneous Approach (ICD-10-PCS; principal; 2016-06-26)
PROC: 02HK3JZ Insertion of Pacemaker Lead into Right Ventricle, Percutaneous Approach (ICD-10-PCS; principal; 2016-06-26)
DX: I44.2 Atrioventricular block, complete (principal); J44.9 Chronic obstructive pulmonary disease, unspecified; F12.20 Cannabis dependence, uncomplicated; Z87.891 Personal history of nicotine dependence; R91.1 Solitary pulmonary nodule; I10 Essential (primary) hypertension; E78.5 Hyperlipidemia, unspecified; I73.9 Peripheral vascular disease, unspecified; M81.0 Age-related osteoporosis without current pathological fracture
CPT/HCPCS: 1NP; 86618; CCU; 36415; 87070; 93005; 93010; 93306; 99291; C1785; C1898; J0131; J1100; J1644; J2405; J3370; J3490; J7060